=== PATIENT | male | born 1950 | race Caucasian/White ===

== ENCOUNTER 2017-03-15 09:13 | Outpatient (CLI) | payer MEDICARE, MEDICAID ==
--- NOTE | 2017-03-15 14:47 | MRI ---
MRI OF THE PELVIS WITHOUT CONTRAST: Comparison: None. History: Prostate cancer status post biopsy in September with elevated PSA. Radiation therapy planning. Technique: Multiplanar, multisequence MRI images were obtained of the pelvis/prostate without contra st. Post contrast images could not be obtained as the patient had poor renal function. This slightly limits this examination. FINDINGS: There is hypertrophy of the central gland consistent with BPH. No suspicious lesion was seen within the central gland or within the peripheral zone in the prostate on this examination. No restricted d iffusion or low value on ADC map is seen in the peripheral zone. The seminal vesicles are normal in appearance without evidence of infiltration. Both neurovascular b undles appear intact. No pelvic adenopathy is seen. The visualized bones are unremarkable. There is thickening of the urin kate bladder wall. IMPRESSION: 1. PI-RADS category 1 - very low likelihood that a clinically significant cancer is present. POS: OTIS
== END 2017-03-15 09:14 | disposition home or self-care (01) ==
LOC: TBSIIMAG 09:13
PROVIDERS: ATTEND Radiology Radiation Oncology
DX: C61 Malignant neoplasm of prostate (principal)
CPT/HCPCS: 72195